=== PATIENT | female | born 1985 | race Hispanic/Latino ===

== ENCOUNTER 2017-03-16 21:09 | Observation (INO) | payer BC ==
[~2017-03-16] VITALS: Ht 157.5 cm; Wt 73.0 kg
[2017-03-16 21:42] LABS: BASOPHILS % 0.5 % (0.0-1.0); EOSINOPHILS # (AUTO) 0.1 (0.0-0.4); EOSINOPHILS % 1.7 % (0.0-6.0); LYMPHOCYTES # (AUTO) 1.9 (1.0-3.2); LYMPHOCYTES % 25.5 % (18.0-39.1); MEAN CORPUSCULAR HEMOGLOBIN 15.6 pg (28-32); MEAN CORPUSCULAR HGB CONC 24.4 g/dL (31-35); MEAN CORPUSCULAR VOLUME 63.8 fL (81-99); MONOCYTES # (AUTO) 0.6 (0.2-0.8); MONOCYTES % 7.5 % (4.4-11.3); NEUTROPHILS # (AUTO) 4.9 (2.1-6.9); NEUTROPHILS % 64.5 % (38.7-80.0); PLATELET COUNT 192 x10e3/uL (140-360); RED BLOOD COUNT 3.92 x10e6/uL (3.6-5.1); RED CELL DISTRIBUTION WIDTH 19.9 % (11.7-14.4)
[2017-03-16 21:49] LABS: HEMOGLOBIN 6.1 g/dL (12.0-16.0)
[2017-03-16] MEDS ORDERED: ROBAXIN-750750 MG PO (21:50)
[2017-03-16] MEDS ORDERED: IBUPROFEN400 MG PO (21:52)
[2017-03-16] MEDS ORDERED: KETOROLAC PO (21:52)
[2017-03-16 21:53] LABS: INR 0.94
[2017-03-16 21:54] LABS: PARTIAL THROMBOPLASTIN TIME 28.4 seconds (23.8-35.5)
--- NOTE | 2017-03-16 21:58 | Diagnostic Imaging Report ---
EXAMINATION: CHEST SINGLE (PORTABLE) INDICATION: Shortness of breath COMPARISON: None FINDINGS: TUBES and LINES: None. LUNGS: Lungs are well inflated. Lungs are clear. There is no evidence of pneumonia or pulmonary edema. PLEURA: No pleural effusion or pneumothorax. HEART AND MEDIASTINUM: The cardiomediastinal silhouette is unremarkable. BONES AND SOFT TISSUES: No acute osseous lesion. Soft tissues are unremarkable. UPPER ABDOMEN: No free air under the diaphragm. IMPRESSION: No acute thoracic abnormality. Signed by: Dr. Sergey Caceres M.D. on 03/16/2017 9:55 PM
[2017-03-16 22:01] LABS: % IRON SATURATION 3 % (15-50); ALANINE AMINOTRANSFERASE 8 IU/L (0-55); ALBUMIN/GLOBULIN RATIO 1.1 (0.8-2.0); ALKALINE PHOSPHATASE 63 IU/L (40-150); BLOOD UREA NITROGEN 10 mg/dL (7-26); BUN/CREATININE RATIO 13 (6-25); CALCIUM 7.9 mg/dL (8.4-10.2); CARBON DIOXIDE 24 mmol/L (22-29); CHLORIDE 108 mmol/L (98-107); CREATININE, SERUM 0.76 mg/dL (0.57-1.11); EST GLOMERULAR FILTRATION RATE > 60 ML/MIN (60-); GLUCOSE 109 mg/dL (74-118); IRON 20 ug/dL (50-170); SODIUM 139 mmol/L (136-145); TOTAL IRON BINDING CAPACITY 615 ug/dL (261-478); TRANSFERRIN 439 mg/dL (180-382)
[2017-03-16 22:05] LABS: HYPOCHROMASIA MARKED
[2017-03-16 22:06] LABS: ANISOCYTOSIS MODE; PLATELET ESTIMATE ADEQUATE; PLATELET MORPHOLOGY COMMENT FEW GIANT; POIKILOCYTOSIS MODERATE; RBC MORPHOLOGY COMMENT ABNORMAL
[2017-03-16 22:13] LABS: BILIRUBIN,URINE 1+ (NEGATIVE); CLARITY,URINE SL CLOUDY (CLEAR); COLOR,URINE AMBER (YELLOW); KETONES,URINE NEGATIVE (NEGATIVE); LEUKOCYTE ESTERASE ,URINE NEGATIVE (NEGATIVE); NITRITE,URINE NEGATIVE (NEGATIVE); PROTEIN,URINE DIPSTICK NEGATIVE (NEGATIVE); URINE UROBILINOGEN 0.2 mg/dL (0.2 - 1)
[2017-03-16] MEDS ORDERED: ONDANSETRON HCL INJ 2 MG/ML VIAL IV PRN (22:15)
[2017-03-16] MEDS ORDERED: SODIUM CHLORIDE 0.9% 250ML 250 ML IV ONE (22:15)
[2017-03-16] MEDS ORDERED: SODIUM CHLORIDE FLUSH 10 ML SYR INJ PRN (22:15)
[2017-03-16] MEDS ORDERED: FUROSEMIDE INJ 10 MG/ML 2 ML VIAL IV PRN (22:15)
[2017-03-16 22:20] LABS: FERRITIN 1.06 ng/mL (4.63-204.00)
[2017-03-16 22:26] LABS: EPITHELIAL CELLS,URINE MANY /LPF
--- OUTSIDE RECORDS SUMMARY | 2017-03-16 22:37 | XMS REPORT ---
Author Author [facility] Address Unknown Phone Unavailable Care Team Providers Care Enhanced Environmental Operator Name Role Phone DEMETRIS JESUS Unavailable Unavailable Problems This patient has no known problems. Allergies, Adverse Reactions, Alerts This patient has no known allergies or adverse reactions. Medications This patient has no known medications. Results Test Description Test Time Test Comments Text Results Atomic Results Result Comments CHEST SINGLE (PORTABLE) [place] [address] Patient Name: YOEL BEDOYA MR #: [id number] : 1985 Age/Sex: 32/F Req #: [id number] Adm Physician: Ordered by: DEMETRIS JESUS MD Report #: [id number] Location: ER Room/Bed: ___ Procedure: [id number] DX/CHEST SINGLE (PORTABLE) Exam Date: 03/16/17 Exam Time: 2129 REPORT STATUS: Signed EXAMINATION: CHEST SINGLE (PORTABLE) INDICATION: Shortness of breath COMPARISON: None FINDINGS: TUBES and LINES: None. LUNGS: Lungs are well inflated. Lungs are clear. There is no evidence of pneumonia or pulmonary edema. PLEURA: No pleural effusion or pneumothorax. HEART AND MEDIASTINUM: The cardiomediastinal silhouette is unremarkable. BONES AND SOFT TISSUES: No acute osseous lesion. Soft tissues are unremarkable. UPPER ABDOMEN: No free air under the diaphragm. IMPRESSION: No acute thoracic abnormality. Signed by: Dr. Sergey Caceres M.D. on 03/16/2017 9:55 PM Dictated By: SERGEY STACK MD 54 Transcribed By: ROSALIE on 03/16/172154 COPY TO: DEMETRIS JESUS MD
[2017-03-16 23:35] VITALS: BP 109/53
[2017-03-16] MEDS: HYDROCODONE/APAP 10MG-325MG TAB PO PRN (23:55)
[2017-03-17] VITALS (7 sets, daily range): BP systolic 118–160; BP diastolic 65–91
[2017-03-17] MEDS ORDERED: PEG (High)/E-LYTE SOLN 4,000 ML BTL PO ONE (01:15)
[2017-03-17] MEDS: HYDROCODONE/APAP 10MG-325MG TAB PO PRN ×2 (03:46→19:44)
[2017-03-17] MEDS ORDERED: SODIUM CHLORIDE 0.9% 250ML 250 ML ONE (04:14)
[2017-03-17 08:25] LABS: BASOPHILS # (AUTO) 0.1 (0.0-0.1); BASOPHILS % 0.7 % (0.0-1.0); EOSINOPHILS # (AUTO) 0.2 (0.0-0.4); EOSINOPHILS % 2.2 % (0.0-6.0); HEMATOCRIT 29.2 % (34.2-44.1); LYMPHOCYTES # (AUTO) 2.6 (1.0-3.2); MEAN CORPUSCULAR HGB CONC 27.1 g/dL (31-35); MEAN CORPUSCULAR VOLUME 66.7 fL (81-99); MONOCYTES # (AUTO) 0.6 (0.2-0.8); MONOCYTES % 7.4 % (4.4-11.3); NEUTROPHILS # (AUTO) 4.9 (2.1-6.9); NEUTROPHILS % 58.5 % (38.7-80.0); PLATELET COUNT 123 x10e3/uL (140-360); RED BLOOD COUNT 4.38 x10e6/uL (3.6-5.1); RED CELL DISTRIBUTION WIDTH 22.5 % (11.7-14.4)
[2017-03-17 08:31] LABS: HEMOGLOBIN 7.9 g/dL (12.0-16.0)
[2017-03-17 08:36] LABS: ALANINE AMINOTRANSFERASE 8 IU/L (0-55); ALBUMIN 3.8 g/dL (3.5-5.0); ALBUMIN/GLOBULIN RATIO 1.1 (0.8-2.0); ALKALINE PHOSPHATASE 60 IU/L (40-150); ANION GAP 11.2 mmol/L (8-16); BLOOD UREA NITROGEN 10 mg/dL (7-26); BUN/CREATININE RATIO 14 (6-25); CALCIUM 8.6 mg/dL (8.4-10.2); CARBON DIOXIDE 28 mmol/L (22-29); CHLORIDE 105 mmol/L (98-107); CREATININE, SERUM 0.73 mg/dL (0.57-1.11); EST GLOMERULAR FILTRATION RATE > 60 ML/MIN (60-); GLUCOSE 85 mg/dL (74-118); POTASSIUM 4.2 mmol/L (3.5-5.1); SODIUM 140 mmol/L (136-145)
[2017-03-17 08:56] LABS: HYPOCHROMASIA MARKED; PLATELET ESTIMATE ADEQUATE; PLATELET MORPHOLOGY COMMENT NORMAL; POIKILOCYTOSIS MODERATE
[2017-03-17 08:57] LABS: ANISOCYTOSIS MARKED; MICROCYTOSIS MARKED; RBC MORPHOLOGY COMMENT ABNORMAL
[2017-03-17] MEDS ORDERED: PROPOFOL IV EMULSION 10 MG/ML 50 ML VIAL ONE (17:44)
[2017-03-17] MEDS ORDERED: LIDOCAINE HCL 2% LOCAL INJ 5 ML SDV VIAL INJ ONE (17:44)
[2017-03-17] MEDS ORDERED: GLUCAGON FOR INJ 1 MG VIAL ONE (17:44)
--- NOTE | 2017-03-17 20:24 | Operative Report ---
DATE OF PROCEDURE: March 17, 2017 REFERRING PHYSICIANS: Dr. Rosina Rubin and Dr. Eliu Carrasco. PROCEDURES PERFORMED 1. Esophagogastroduodenoscopy with biopsies. 2. Colonoscopy with polypectomy. INDICATIONS FOR EGD: Severe iron deficiency anemia. INDICATIONS FOR COLONOSCOPY: Severe iron deficiency anemia. MEDICATION: Patient was done under MAC. Please see anesthesiologist's note. PROCEDURE: With the patient in the left lateral decubitus position, the flexible fiberoptic Olympus gastroscope was introduced into the esophagus under direct visualization without any difficulty. There was some patchy erythema noted in the distal esophagus. The scope was then advanced with ease into the stomach. Mucosa overlying the antrum and the body revealed some patchy erythema and low-grade to moderate edema, and biopsies were obtained and sent to stain for H. pylori. The pylorus was of normal contour and shape. It was intubated with ease, and the scope was advanced all the way to the 2nd portion of the duodenum. Biopsies were obtained from the proximal 2nd portion to rule out sprue considering the patient's history of pure iron deficiency anemia. Mucosa overlying the duodenal bulb appeared to be within normal limits. The scope was then withdrawn back into the stomach and retroflexed. Mucosa overlying the fundus and the cardia appeared to be within normal limits. The scope was then straightened out. The stomach was decompressed. Scope was subsequently withdrawn. Patient tolerated the procedure well. IMPRESSION 1. Distal esophagitis, mild. 2. Gastritis, biopsied. Biopsies sent to stain for H. pylori. 3. Rule out sprue. PLAN: Follow up histology. Initiate Protonix 40 mg 1 p.o. q.a.m. a.c. The patient was then turned around. After adequate lubrication of the anal canal, a flexible fiberoptic Olympus colonoscope was inserted into the rectum with ease and advanced all the way to the cecum. The scope was then withdrawn slowly. Mucosa overlying the cecum, ascending colon, transverse colon and descending colon appeared to be within normal limits. Three minute polyps were hot biopsied from the sigmoid colon. The rectum appeared to be within normal limits. The scope was then retroflexed into the distal rectum, and the area around the dentate line appeared to be within normal limits. The scope was then straightened out. It was subsequently withdrawn. Patient tolerated the procedure well. IMPRESSION: Sigmoid colon polyps times 3, hot biopsied. PLAN: Follow up histology. Initiate high-fiber, low-fat diet. Initiate high-fiber supplement. Timing of followup colonoscopy pending pathology report. Job#: [id number] cc:MD ELIU MCCRAY MD
== END 2017-03-17 22:15 | disposition home or self-care (01) ==
LOC: ER 21:09 → IMCU 22:35
PROVIDERS: ADMIT Internal Medicine; ATTEND Internal Medicine
DX: D50.0 Iron deficiency anemia secondary to blood loss (chronic) (principal); R07.9 Chest pain, unspecified; R51 Headache; K20.9 Esophagitis, unspecified; K29.50 Unspecified chronic gastritis without bleeding; K31.9 Disease of stomach and duodenum, unspecified; D12.5 Benign neoplasm of sigmoid colon; N92.0 Excessive and frequent menstruation with regular cycle; M54.5 Low back pain; F17.210 Nicotine dependence, cigarettes, uncomplicated
CPT/HCPCS: 36415 ×2; 36430; 43239; 45384; 71045; 80053 ×2; 81001; 82728; 83540; 84466; 84702; 85025 ×2; 85610; 85730; 86850; 86900; 86920; 87086; 88305; 88312; 93005; 96374; 96376; 99284; G0378 ×2; J1610; J1940; J2001; J7050 ×2; P9016; 45378

== ENCOUNTER → 2019-09-30 | Day surgery (SDC) | payer BC ==
[2019-09-25 11:14] LABS: BASOPHILS # (AUTO) 0.1 (0.0-0.1); BASOPHILS % 0.7 % (0.0-1.0); EOSINOPHILS # (AUTO) 0.4 (0.0-0.4); EOSINOPHILS % 5.7 % (0.0-6.0); HEMATOCRIT 37.5 % (34.2-44.1); HEMOGLOBIN 11.6 g/dL (12.0-16.0); LYMPHOCYTES # (AUTO) 2.6 (1.0-3.2); LYMPHOCYTES % 36.6 % (18.0-39.1); MEAN CORPUSCULAR HEMOGLOBIN 24.8 pg (28-32); MEAN CORPUSCULAR HGB CONC 30.9 g/dL (31-35); MEAN CORPUSCULAR VOLUME 80.1 fL (81-99); MONOCYTES # (AUTO) 0.6 (0.2-0.8); MONOCYTES % 7.6 % (4.4-11.3); NEUTROPHILS # (AUTO) 3.6 (2.1-6.9); NEUTROPHILS % 49.3 % (38.7-80.0); PLATELET COUNT 216 x10e3/uL (140-360); RED BLOOD COUNT 4.68 x10e6/uL (3.6-5.1)
[~2019-09-30] MED LIST: ATENOLOL50 MG PO; BUPIVACAINE 0.25%/EPI 30ML SDV INJ ONE; CYCLOBENZAPRINE10 MG PO; DEXAMETHASONE SOD PHOS INJ 4 MG/ML VIAL ONE; FENTANYL CITRATE/PF 100MCG/2 ML INJ ONE; IBUPROFEN400 MG PO; IRON PO; KETOROLAC PO; LIDOCAINE HCL 2% LOCAL INJ 5 ML SDV VIAL INJ ONE; METOCLOPRAMIDE HCL 10 MG/2ML VIAL ONE; MIDAZOLAM HCL 2 MG/2 ML VIAL ONE; ONDANSETRON HCL INJ 2MG/ML 2ML 2 MG/ML VIAL ONE; PROPOFOL IV EMULSION 10 MG/ML 20 ML VIAL ONE; ROBAXIN-750750 MG PO; SEVOFLURANE INHAL SOLN 250 ML PEN BTL ONE; SILVER NITRATE SWABS ONE; TEMAZEPAM15 MG PO; ULTRAM 50MG50 MG PO
[2019-09-30 09:20] VITALS: BP 119/84
--- NOTE | 2019-09-30 23:17 | Operative Report ---
DATE OF PROCEDURE: 09/30/2019 SURGEON: Corinna Stein MD PROCEDURE: Dilation and curettage, hysteroscopy, TruClear polypectomy, Mirena IUD insertion. COMPLICATIONS: None. ESTIMATED BLOOD LOSS: 10 mL. INDICATIONS FOR THE PROCEDURE: The patient reported abnormal uterine bleeding. Ultrasound was noted to have cystic thickened endometrium. The patient was counseled on the risks, benefits, and alternatives of hysteroscopy with polypectomy along with IUD insertion. She agreed to proceed with the proposed procedure. DESCRIPTION OF PROCEDURE: The patient was taken to the operating room, where she was placed under general anesthesia. She was placed in dorsal lithotomy position with legs in Glenn stirrups. She was prepped and draped in the usual sterile fashion. A formal time-out was confirmed to confirm correct patient, site, and procedure. The cervix was visualized using a Catalan and Cary retractor. The anterior lip of the cervix was grasped with a single-tooth tenaculum. The cervix was gently dilated in order to accommodate the TruClear hysteroscope. Hysteroscopy revealed multiple small polyps. The TruClear soft tissue morcellator was placed against and polyps were resected. Bilateral ostia were visualized. There was noted to be no injury. A sharp curettage was then gently performed. The uterus was then sounded to 6.5 cm. The Mirena IUD device was placed and the strings were cut to 4 cm. All instruments were then removed. There was noted to be excellent hemostasis. All lap, sponge, and instruments counts were correct x2 at the end of the procedure. The patient was taken to the recovery room in stable condition. OPERATIVE FINDINGS: Cervix and vagina appeared within normal limits with no lesions or masses. The uterus was sounded to 6.5 cm. On hysteroscopy, there was noted to be multiple small polyps. AEROLOGIST: None. ANESTHESIA: General. URINE OUTPUT: Unmeasured, straight catheter prior to procedure. Corinna Stein MD JPO/MODL /[id number]
== END | disposition home or self-care (01) ==
LOC: OR 05:41
PROVIDERS: ATTEND Obstetrics & Gynecology
DX: N84.1 Polyp of cervix uteri (principal); Z30.430 Encounter for insertion of intrauterine contraceptive device; R93.89 Abnormal findings on diagnostic imaging of other specified body structures; I10 Essential (primary) hypertension; Z01.810 Encounter for preprocedural cardiovascular examination; Z01.812 Encounter for preprocedural laboratory examination; Z11.59 Encounter for screening for other viral diseases
CPT/HCPCS: 36415 ×2; 58300; 58558; 84702; 85025; 88305; 93005; J1100; J2001; J2250; J2405; J2704; J2765; J3010; U0002